=== PATIENT | female | born 1975 | race Caucasian/White ===

== ENCOUNTER 2022-05-13 10:47 | Outpatient (REF) | payer OTHER, SELFPAY ==
--- NOTE | ~2022-05-13 | XR_ITS ---
EXAMINATION: XR CHEST CLINICAL INFORMATION: Asthma. SOB. COMPARISON: Chest 10/01/2017 TECHNIQUE: 2 views of the chest were obtained. FINDINGS: The lungs are well-expanded and clear of acute pneumonic process. The heart size and pulmonary vascularity is normal. No gross bony and the body seen. There are surgical suzette in the left upper quadrant from previous intervention. No gross bony abnormality. XR/XR chest 2V IMPRESSION: Unremarkable chest exam. .
--- NOTE | 2022-05-13 11:01 | ECG_ITS ---
Test Reason : pre op Blood Pressure : / mmHG Vent. Rate : 078 BPM Atrial Rate : 078 BPM P-R Int : 116 ms QRS Dur : 076 ms QT Int : 366 ms P-R-T Axes : 011 022 031 degrees QTc Int : 417 ms Normal sinus rhythm Normal ECG When compared with ECG of 30-SEP-2017 15:30, No significant change was found Referred By: Nicolas Ambrose Electronically Signed By:LESTER GANDARA MD
[2022-05-13 11:11] LABS: MANUAL DIFF FLAG NO
[2022-05-13 12:22] LABS: Basophils Absolute Auto 0.1 X10*3/uL (0.0-0.2); Basophils Percent Auto 1.1 % (0-2); Eosinophils Absolute Auto 0.1 X10*3/uL (0.0-0.4); Eosinophils Percent Auto 1.3 % (0-4); Hematocrit 31.4 % (37.0-47.0); Hemoglobin 9.6 g/dl (12.0-16.0); Imm Gran Abs Auto 0.02 X10*3/uL (0.00-0.03); Imm Gran Pct Auto 0.3 % (0.0-0.4); Lymphocytes Absolute Auto 1.5 X10*3/uL (1.2-4.9); Mean Corpuscular HGB Conc 30.6 g/dl (31.0-35.0); Mean Corpuscular Hemoglobin 22.2 pg (27.0-33.0); Mean Corpuscular Volume 72.5 fL (80.0-98.0); Mean Platelet Volume 9.6 fL (9.4-12.3); Monocytes Absolute Auto 0.5 X10*3/uL (0.1-1.2); Monocytes Percent Auto 8.4 % (2-11); Neutrophils Percent Auto 64.9 % (45-73); Platelet Count 376 X10*3/uL (160-400); Red Blood Count 4.33 X10*6/uL (4.20-5.50); Red Cell Distribution Width 19.3 % (11.0-16.0); White Blood Count 6.2 X10*3/uL (4.8-10.8)
[2022-05-13 12:45] LABS: Appearance Urine Cloudy; Color Urine Yellow; Glucose Urine UA Negative (Negative); Leukocyte Esterase Urine Trace (Negative); Nitrite Urine Negative (Negative); PH 6.5 (5.0-9.0); UMIC TRIGGER UA YES; Urine Blood Negative (Negative); Urine Ketones Trace mg/dL (Negative); Urine Protein 100 (2+) mg/dL (Neg-Trace)
[2022-05-13 12:54] LABS: Estimated Average Glucose 108 mg/dL; Hemoglobin A1C 95.4031 umol/L; Hemoglobin A1c % 5.4 %
[2022-05-13 13:36] LABS: Alanine Aminotransferase 31 U/L (0-31); Albumin Level 4.3 g/dL (3.5-5.0); Alkaline Phosphatase 60 U/L (39-117); Anion Gap 17 (12-20); Aspartate Amino Transferase 28 U/L (5-31); Bilirubin Total 0.6 mg/dL (0.0-1.0); Blood Urea Nitrogen 8 mg/dL (9-16); Calcium 9.4 mg/dL (8.4-10.2); Carbon Dioxide 24 mmol/L (22-29); Chloride 105 mmol/L (96-108); Estimated Glomerular Filt Rate > 60; Glucose Random 136 mg/dL (60-115); HCG Quantitative < 2 mIU/mL; Potassium 3.5 mmol/L (3.3-5.1); Sodium 142 mmol/L (135-145); Total Protein 6.8 g/dL (6.5-8.0)
[2022-05-13 13:41] LABS: Bacteria Urine 4+ (None Seen); Granular Casts Urine Present; RBC Urine 0-2 /HPF (0-2); Squamous Epithelial Cell Urine >20 /HPF (0-2); WBC Urine 0-5 /HPF (0-5)
[2022-05-14 07:36] LABS: HIV AB/AG Nonreactive (Nonreactive); HIV Num 1 0.08 S/CO (0.00-0.99)
== END 2022-05-13 10:48 | disposition home or self-care (01) ==
LOC: HO.XRAY 10:47
PROVIDERS: Visit Provider Surgery Plastic and Reconstructive Surgery
DX: Z01.818 Encounter for other preprocedural examination (principal); Z11.4 Encounter for screening for human immunodeficiency virus [HIV]
CPT/HCPCS: 36415; 71046; 80053; 81001; 83036; 84702; 85025; 85610; 87389; 93005

== ENCOUNTER 2024-06-28 11:27 | Outpatient (REF) | payer OTHER, SELFPAY ==
--- NOTE | 2024-06-28 | ECG_ITS ---
Test Reason : liposuction Blood Pressure : */* mmHG Vent. Rate : 76 BPM Atrial Rate : 76 BPM P-R Int : 168 ms QRS Dur : 84 ms QT Int : 372 ms P-R-T Axes : 18 25 32 degrees QTcB Int : 418 ms Normal sinus rhythm Normal ECG When compared with ECG of 13-May-2022 11:27, No significant change was found Referred By: Nicolas Ambrose Electronically Signed By: LESTER GANDARA MD
--- NOTE | ~2024-06-28 | XR_ITS ---
EXAMINATION: XR CHEST CLINICAL INFORMATION: PRE SURGERY COMPARISON: May 13, 2022. TECHNIQUE: 2 views of the chest were obtained. FINDINGS: No consolidation, pleural effusion or pneumothorax. No hyperinflation. No lung volume. Cardiomediastinal silhouette size is normal. Calcified plaque aortic arch. Sutures and vascular clips in the epigastric region. XR/XR chest 2V IMPRESSION: No acute airspace disease. Stable chest. Electronically signed by: Kurtis Mancilla MD 06/28/2024 01:29 PM EDT
[2024-06-28 12:06] LABS: MANUAL DIFF FLAG NO
[2024-06-28 12:09] LABS: Basophils Absolute Auto 0.1 X10*3/uL (0.0-0.2); Basophils Percent Auto 0.9 % (0-2); Eosinophils Absolute Auto 0.1 X10*3/uL (0.0-0.4); Hematocrit 35.3 % (37.0-47.0); Hemoglobin 11.8 g/dl (12.0-16.0); Imm Gran Abs Auto 0.02 X10*3/uL (0.00-0.03); Imm Gran Pct Auto 0.4 % (0.0-0.4); Lymphocytes Absolute Auto 1.7 X10*3/uL (1.2-4.9); Mean Corpuscular HGB Conc 33.4 g/dl (31.0-35.0); Mean Corpuscular Hemoglobin 28.3 pg (27.0-33.0); Mean Corpuscular Volume 84.7 fL (80.0-98.0); Mean Platelet Volume 9.2 fL (9.4-12.3); Monocytes Absolute Auto 0.3 X10*3/uL (0.1-1.2); Monocytes Percent Auto 6.1 % (2-11); Neutrophils Absolute Auto 3.2 x10*3/uL (2.0-8.3); Neutrophils Percent Auto 58.6 % (45-73); Platelet Count 376 X10*3/uL (160-400); Red Blood Count 4.17 X10*6/uL (4.20-5.50); Red Cell Distribution Width 14.1 % (11.0-16.0); White Blood Count 5.4 X10*3/uL (4.8-10.8)
[2024-06-28 12:26] LABS: Estimated Average Glucose 94 mg/dL; Hemoglobin A1c % 4.9 % (<6.0); Total Hemoglobin (HGBA1C) 3103.5879 umol/L
[2024-06-28 12:29] LABS: Prothrombin Time 11.3 SEC (10.9-12.4)
[2024-06-28 12:33] LABS: Alanine Aminotransferase 20 U/L (0-31); Albumin Level 4.4 g/dL (3.5-5.0); Alkaline Phosphatase 47 U/L (39-117); Anion Gap 10 (12-20); Aspartate Amino Transferase 20 U/L (5-31); Bilirubin Total 0.5 mg/dL (0.0-1.0); Blood Urea Nitrogen 9 mg/dL (9-16); Calcium 9.1 mg/dL (8.4-10.2); Carbon Dioxide 23 mmol/L (22-29); Chloride 109 mmol/L (96-108); Estimated Glomerular Filt Rate > 60; Glucose Random 92 mg/dL (60-115); HCG Quantitative < 2 mIU/mL; Iron 33 mcg/dL (30-160); Percent Iron Saturation 10 % (15-50); Potassium 3.7 mmol/L (3.3-5.1); Sodium 138 mmol/L (135-145); Total Iron Binding Capacity 347 mcg/dL (228-428); Total Protein 7.2 g/dL (6.5-8.0); Unsaturated Iron Binding 314 ug/dL
[2024-06-28 12:44] LABS: HIV AB/AG Nonreactive (Nonreactive); HIV Num 1 0.15 S/CO (0.00-0.99)
[2024-06-28 13:00] LABS: Appearance Urine Cloudy; Color Urine Yellow; Glucose Urine UA Negative (Negative); Leukocyte Esterase Urine Trace (Negative); Nitrite Urine Negative (Negative); Specific Gravity - Urine 1.025 (1.005-1.025); UMIC TRIGGER UA YES; Urine Blood Negative (Negative); Urine Ketones Trace mg/dL (Negative); Urine Protein Trace mg/dL (Neg-Trace)
[2024-06-28 13:05] LABS: Bacteria Urine 3+ (None Seen); Hyaline Casts Urine 0-2 /LPF (0-2); RBC Urine 0-2 /HPF (0-2); WBC Urine 0-5 /HPF (0-5)
== END 2024-06-28 11:28 | disposition home or self-care (01) ==
LOC: HO.LAB 11:27
PROVIDERS: PCP Internal Medicine; Visit Provider Surgery Plastic and Reconstructive Surgery
DX: Z01.818 Encounter for other preprocedural examination (principal)
CPT/HCPCS: 36415; 71046; 80053; 81001; 81003; 83036; 83540; 84702; 85025; 85610; 85730; 87389; 93005

== ENCOUNTER → 2024-06-28 12:04 | Outpatient (BNV) | payer OTHER, SELFPAY | PROVIDERS: PCP Internal Medicine; Visit Provider Internal Medicine Cardiovascular Disease | DX: L98.7 Excessive and redundant skin and subcutaneous tissue (principal) | CPT/HCPCS: 93010 ==

== ENCOUNTER → 2024-06-28 12:23 | Outpatient (BNV) | payer OTHER, SELFPAY | PROVIDERS: PCP Internal Medicine; Visit Provider Radiology Diagnostic Radiology | DX: Z01.818 Encounter for other preprocedural examination (principal) | CPT/HCPCS: 71046 ==